=== PATIENT | female | born 1930 | race Caucasian/White ===

== ENCOUNTER 2017-08-12 22:04 | Inpatient (IN) | payer MEDICARE, OTHER ==
--- NOTE | 2017-08-12 22:31 | EDM.PDOC ---
ED HPI GENERAL MEDICAL PROBLEM - General Chief Complaint: Chest Pain Stated Complaint: CHEST PAIN/SOB Time Seen by Provider: 08/12/17 22:10 Source of Information: Reports: Patient, Family History Limitations: Reports: No Limitations - History of Present Illness INITIAL COMMENTS - FREE TEXT/NARRATIVE: 87-year-old female who is been sick for a week, intermittent fevers and now has chest pressure, pain with breathing and shortness of breath. Tonight she felt like she was "going to " so her primary physician told her to come in for further evaluation. She has been on ciprofloxacin for the last 5 days for a possible UTI. Onset: Gradual (Over the past 5-6 days) Location: Reports: Chest Severity: Moderate Treatments LIVESTOCK COUNTER: Reports: EKG, Other (see below) (Has been on antibiotics for the past 5 days) Mid Chest Pain Score (Numeric/FACES): 6 - Related Data Allergies Allergy/AdvReac Type Severity Reaction Status Date / Time Sulfa (Sulfonamide Allergy Rash Verified 08/12/17 22:19 Antibiotics) Home Meds: Home Meds Ascorbate Calcium [Vitamin C] 500 mg PO DAILY 01/08/15 [History] Calcium Carbonate/Vitamin D3 [Calcium 600 + D3 Softgel] 1 tab PO BID 01/08/15 [ History] Rizatriptan [Maxalt] 10 mg PO ASDIRECTED PRN 01/08/15 [History] Vitamin E 400 unit PO DAILY 01/08/15 [History] Warfarin [Coumadin] 7.5 mg PO .SATSUNTUESWEDFIR 01/08/15 [History] Evista 60 mg PO PCLUNCH 04/21/16 [History] Ciprofloxacin HCl [Cipro] 250 mg PO BID 08/12/17 [History] Hydrochlorothiazide 25 mg PO DAILY 08/12/17 [History] Levothyroxine [Synthroid] 88 mcg PO DAILY 08/12/17 [History] Mirabegron [Myrbetriq] 50 mg PO BEDTIME 08/12/17 [History] Past Medical History Other Gastrointestinal History: difficulty swallowing Other Genitourinary History: frequency - Past Surgical History Other Cardiovascular Surgeries/Procedures: cardioversion Other Neurological Surgeries/Procedures: possible compression fracture ED ROS GENERAL - Review of Systems Review Of Systems: See Below Constitutional: Reports: Fever, Chills, Malaise HEENT: Reports: No Symptoms Respiratory: Reports: Shortness of Breath, Cough. Denies: Sputum Cardiovascular: Reports: Chest Pain (Intermittent pressure worse with coughing) GI/Abdominal: Denies: Abdominal Pain : Reports: No Symptoms Skin: Reports: No Symptoms Neurological: Reports: Weakness Psychiatric: Reports: No Symptoms ED EXAM, GENERAL - Physical Exam Exam: See Below Exam Limited By: No Limitations General Appearance: Alert, No Apparent Distress Throat/Mouth: Normal Inspection Head: Atraumatic Respiratory/Chest: No Respiratory Distress, Rales (Rales in the bases especially on the left, decreased breath sounds) Cardiovascular: Irregularly Irregular GI/Abdominal: Soft, Non-Tender Extremities: No: Pedal Edema Neurological: Alert, Oriented Psychiatric: Normal Affect, Normal Mood Skin Exam: Warm, Dry Course - Vital Signs Last Recorded V/S: Last Vital Signs Temp 99.3 F 08/13/17 03:34 Pulse 84 08/13/17 03:34 Resp 20 08/13/17 03:34 BP 122/65 08/13/17 03:34 Pulse Ox 98 08/13/17 03:34 - Orders/Labs/Meds Orders: Active Orders 24 hr Category Date Time Status Chest 1V Frontal [CR] Stat Exams 08/12/17 22:27 Taken CULTURE BLOOD [BC] Urgent Lab 08/12/17 22:30 Ordered CULTURE BLOOD [BC] Urgent Lab 08/12/17 22:40 Ordered Sodium Chloride 0.9% [Normal Saline] 1,000 ml Med 08/12/17 23:15 Active IV ASDIRECTED Blood Culture x2 Reflex Set [OM.PC] Urgent Oth 08/12/17 22:27 Ordered EKG 12 Lead [EK] Routine Ther 08/12/17 22:27 Ordered Medication Orders Acetaminophen (Tylenol) 650 mg PO Q4H PRN PRN Reason: Fever Albuterol (Proventil Neb Soln) 2.5 mg NEB Q4H PRN PRN Reason: Shortness Of Breath/wheezing Calcium Carbonate (Caltrate 600+D 1500 Mg-400 Units) 1 tab PO BID [facility] Hydrochlorothiazide (Hydrochlorothiazide) 25 mg PO DAILY [facility] Sodium Chloride (Normal Saline) 1,000 mls @ 150 mls/hr IV ASDIRECTED YOKO Last Infusion: 08/13/17 00:25 Dose: 75 mls/hr Admin: 08/12/17 23:25 Dose: 150 mls/hr Ceftriaxone Sodium 1 gm/ (Sodium Chloride) 50 mls @ 100 mls/hr IV Q24H [facility] Last Admin: 08/13/17 00:48 Dose: 100 mls/hr Levofloxacin/Dextrose 500 mg/ (Premix) 100 mls @ 100 mls/hr IV Q48H [facility] Last Admin: 08/13/17 01:17 Dose: 100 mls/hr Mirabegron (Myrbetriq) 50 mg PO BEDTIME [facility] Raloxifene HCl (Evista) 60 mg PO PCLUNCH [facility] Rizatriptan Benzoate (Maxalt Tax Accounting Manager) 10 mg PO ASDIRECTED PRN PRN Reason: Headache/Pain Sodium Chloride (Saline Flush) 10 ml FLUSH ASDIRECTED PRN PRN Reason: Keep Vein Open Warfarin Sodium (Coumadin) 7.5 mg PO [email or web address] [facility] Last Admin: 08/13/17 00:49 Dose: Labs: Laboratory Tests 08/12/17 08/12/17 Range/Units 22:40 22:40 WBC 9.8 (4.5-11.0) K/uL RBC 3.91 (3.30-5.50) M/uL Hgb 11.5 L (12.0-15.0) g/dL Hct 34.9 L (36.0-48.0) % MCV 89 (80-98) fL MCH 29 (27-31) pg MCHC 33 (32-36) % Plt Count 150 (150-400) K/uL Neut % (Auto) 83 H (36-66) % Lymph % (Auto) 8 L (24-44) % [place] % (Auto) 8 H (2-6) % Eos % (Auto) 1 L (2-4) % Baso % (Auto) 0 (0-1) % Sodium 134 L (140-148) mmol/L Potassium 3.7 (3.6-5.2) mmol/L Chloride 100 (100-108) mmol/L Carbon Dioxide 28 (21-32) mmol/L Anion Gap 9.7 (5.0-14.0) mmol/L BUN 25 H (7-18) mg/dL Creatinine 0.9 (0.6-1.0) mg/dL Est Cr Clr Drug Dosing 37.13 mL/min Estimated GFR (MDRD) 59 L (>60) Glucose 114 H (74-106) mg/dL Calcium 8.3 L (8.5-10.1) mg/dL Total Bilirubin 0.7 (0.2-1.0) mg/dL AST 75 H (15-37) U/L ALT 56 (12-78) U/L Alkaline Phosphatase 149 H (46-116) U/L Troponin I < 0.017 (0.000-0.056) ng/mL Total Protein 7.4 (6.4-8.2) g/dL Albumin 2.7 L (3.4-5.0) g/dL Globulin 4.7 H (2.3-3.5) g/dL Albumin/Globulin Ratio 0.6 L (1.2-2.2) Meds: Medications Generic Name Dose Route Start Last Admin Trade Name Freq PRN Reason Stop Dose Admin Acetaminophen 650 mg 08/13/17 02:22 Tylenol PO Q4H PRN Fever Albuterol 2.5 mg 08/12/17 23:34 Proventil Neb Soln NEB Q4H PRN Shortness Of Breath/wheezing Calcium Carbonate 1 tab 08/13/17 09:00 Caltrate 600+D 1500 Mg-400 Units PO BID YOKO Hydrochlorothiazide 25 mg 08/13/17 09:00 Hydrochlorothiazide PO DAILY [facility] Sodium Chloride 1,000 mls @ 150 mls/hr 08/12/17 23:15 08/13/17 00:25 Normal Saline IV 75 mls/hr ASDIRECTED Y[facility]O Infusion Ceftriaxone Sodium 1 gm/ 50 mls @ 100 mls/hr 08/13/17 00:15 08/13/17 00:48 Sodium Chloride IV 100 mls/hr Q24H [facility] Administration Levofloxacin/Dextrose 500 mg/ 100 mls @ 100 mls/hr 08/13/17 00:15 08/13/17 01 :17 Premix IV 100 mls/hr Q48H [facility] Administration Mirabegron 50 mg 08/13/17 21:00 Myrbetriq PO BEDTIME YOKO Raloxifene HCl 60 mg 08/13/17 13:00 Evista PO PCLUNCH [facility] Rizatriptan Benzoate 10 mg 08/13/17 00:15 Maxalt Tax Accounting Manager PO ASDIRECTED PRN Headache/Pain Sodium Chloride 10 ml 08/12/17 23:34 Saline Flush FLUSH ASDIRECTED PRN Keep Vein Open Warfarin Sodium 7.5 mg 08/13/17 00:15 08/13/17 00:49 Coumadin PO Not Given [email or web address] [facility] Discontinued Medications Generic Name Dose Route Start Last Admin Trade Name Gaetano PRN Reason Stop Dose Admin Albuterol/Ipratropium 3 ml 08/12/17 23:11 08/12/17 23:19 Duoneb 3.0-0.5 Mg/3 Ml NEB 08/12/17 23:12 3 ml ONETIME ONE Administration - Re-Assessments/Exams Free Text/Narrative Re-Assessment/Exam: 08/12/17 22:30 EKG appeared to show well controlled atrial fibrillation, no ST changes. A portable chest x-ray will be obtained as well as blood cultures, CBC, CMP, and troponin. O2 will be continued. 08/12/17 23:13 White count was normal. Chest x-ray is concerning for right upper lobe infiltrate as well as perihilar fullness, also cardiomegaly which appears stable from previous x-ray. She does have some scattered wheezes so a DuoNeb was given, and Dr. Fuller was called to consider admission for pneumonia with possible underlying malignancies. Departure - Departure Time of Disposition: 00:55 Disposition: Admitted As Inpatient 65 Clinical Impression: Pneumonia - Discharge Information - My Orders Last 24 Hours: My Active Orders 08/12/17 22:27 Chest 1V Frontal [CR] Stat Blood Culture x2 Reflex Set [OM.PC] Urgent EKG 12 Lead [EK] Routine 08/12/17 22:30 CULTURE BLOOD [BC] Urgent 08/12/17 22:40 CULTURE BLOOD [BC] Urgent 08/12/17 23:15 Sodium Chloride 0.9% [Normal Saline] 1,000 ml IV ASDIRECTED - Assessment/Plan Last 24 Hours: My Active Orders 08/12/17 22:27 Chest 1V Frontal [CR] Stat Blood Culture x2 Reflex Set [OM.PC] Urgent EKG 12 Lead [EK] Routine 08/12/17 22:30 CULTURE BLOOD [BC] Urgent 08/12/17 22:40 CULTURE BLOOD [BC] Urgent 08/12/17 23:15 Sodium Chloride 0.9% [Normal Saline] 1,000 ml IV ASDIRECTED
[2017-08-12] MEDS ORDERED: Albuterol/Ipratropium 3.0-0.5 MG/3 ML Neb Soln NEB ONE (23:11)
[2017-08-12] MEDS ORDERED: Sodium Chloride 0.9% 1,000 ML IV SCH (23:15)
[2017-08-12] MEDS ORDERED: Albuterol 0.083% 2.5 MG/3 ML Neb Soln NEB PRN (23:34)
[2017-08-12] MEDS ORDERED: Sodium Chloride 0.9% 10 ML Syringe FLUSH PRN (23:34)
--- NOTE | 2017-08-12 23:53 | PCM.HP ---
H&P History of Present Illness - General Date of Service: 08/12/17 Admit Problem/Dx: Admission Diagnosis/Problem Admission Diagnosis/Problem Pneumonia Source of Information: Patient, EMS, Family History Limitations: Reports: No Limitations - History of Present Illness Initial Comments - Free Text/Narative: Mariel was in the office 2 days ago and thought to have a UTI as she was having increased frequency of urination. She was started of Cipro 250mg bid. She had a low grade fever then. She also had orthostatic BP. She was discharged home and continued to have a low grade fevers. This evening she had a temp. up to 103 and was advised to come to the ER. She is being admitted. She has a history of AF and on Warfarin. Mid Chest Pain Score (Numeric/FACES): 6 - Related Data Allergies/Adverse Reactions: Allergies Allergy/AdvReac Type Severity Reaction Status Date / Time Sulfa (Sulfonamide Allergy Rash Verified 08/12/17 22:19 Antibiotics) Home Medications: Home Meds Ascorbate Calcium [Vitamin C] 500 mg PO DAILY 01/08/15 [History] Calcium Carbonate/Vitamin D3 [Calcium 600 + D3 Softgel] 1 tab PO BID 01/08/15 [ History] Rizatriptan [Maxalt] 10 mg PO ASDIRECTED PRN 01/08/15 [History] Vitamin E 400 unit PO DAILY 01/08/15 [History] Warfarin [Coumadin] 7.5 mg PO .SATSUNTUESWEDFIR 01/08/15 [History] Evista 60 mg PO PCLUNCH 04/21/16 [History] Ciprofloxacin HCl [Cipro] 250 mg PO BID 08/12/17 [History] Hydrochlorothiazide 25 mg PO DAILY 08/12/17 [History] Levothyroxine [Synthroid] 88 mcg PO DAILY 08/12/17 [History] Mirabegron [Myrbetriq] 50 mg PO BEDTIME 08/12/17 [History] Past Medical History HEENT History: Reports: Impaired Vision, Macular Degeneration Cardiovascular History: Reports: Afib, Hypertension Respiratory History: Reports: COPD Gastrointestinal History: Reports: Other (See Below) Other Gastrointestinal History: difficulty swallowing Genitourinary History: Reports: Other (See Below) Other Genitourinary History: frequency 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: , Spontaneous Musculoskeletal History: Reports: Osteoporosis, Other (See Below) Other Musculoskeletal History: compression fracture Neurological History: Reports: CVA Endocrine/Metabolic History: Reports: Hypothyroidism, Osteoporosis, Vitamin D Deficiency Hematologic History: Reports: Anticoagulation Therapy - Infectious Disease History Infectious Disease History: Reports: Chicken Pox - Past Surgical History Other Cardiovascular Surgeries/Procedures: cardioversion Other Neurological Surgeries/Procedures: possible compression fracture Social & Family History - Tobacco Use Smoking Status *Q: Never Smoker Second Hand Smoke Exposure: No - Caffeine Use Caffeine Use: Reports: Coffee - Recreational Drug Use Recreational Drug Use: No H&P Review of Systems - Review of Systems: Review Of Systems: See Below General: Reports: Fever, Chills, Weakness, Fatigue HEENT: Reports: No Symptoms Pulmonary: Reports: Shortness of Breath, Cough Cardiovascular: Reports: Dyspnea on Exertion Gastrointestinal: Reports: No Symptoms Genitourinary: Reports: Frequency Musculoskeletal: Reports: No Symptoms Skin: Reports: No Symptoms Psychiatric: Reports: No Symptoms Exam - Exam Exam: See Below - Vital Signs Vital Signs: Last Vital Signs Temp 101.1 F H 08/12/17 23:04 Pulse 95 08/12/17 23:04 Resp 30 H 08/12/17 23:04 BP 149/83 H 08/12/17 23:04 Pulse Ox 96 08/12/17 23:04 Weight: 120 lb - Exam General: Alert, Oriented, 4 HEENT: PERRLA, Hearing Intact, Mucosa Moist & [place], Nares Patent, Normal Nasal Septum, Posterior Pharynx Clear, Conjunctiva Clear, EOMI, EACs Clear, TMs Clear Neck: Supple, Trachea Midline, 2 Lungs: Clear to Auscultation, Normal Respiratory Effort Cardiovascular: Irregular Rhythm GI/Abdominal Exam: Normal Bowel Sounds, Soft, Non-Tender, No Organomegaly, No Distention, No Abnormal Bruit, No Mass, Pelvis Stable Back Exam: Normal Inspection, Full Range of Motion, NT Extremities: Normal Inspection, Normal Range of Motion, Non-Tender, No Pedal Edema, Normal Capillary Refill Peripheral Pulses: 1+: Radial (L), Radial (R) Skin: Warm, Dry, Intact Neuro Extensive - Mental Status: Alert, Oriented x3, Normal Mood/Affect Neuro Extensive - Motor, Sensory, Reflexes: CN II-XII Intact DTR: 1+: Bicep (L), Bicep (R) Psychiatric: Alert, Normal Affect, Normal Mood - Patient Data Lab Results Last 24 hrs: Laboratory Results - last 24 hr 08/12/17 08/12/17 Range/Units 22:40 22:40 WBC 9.8 (4.5-11.0) K/uL RBC 3.91 (3.30-5.50) M/uL Hgb 11.5 L (12.0-15.0) g/dL Hct 34.9 L (36.0-48.0) % MCV 89 (80-98) fL MCH 29 (27-31) pg MCHC 33 (32-36) % Plt Count 150 (150-400) K/uL Neut % (Auto) 83 H (36-66) % Lymph % (Auto) 8 L (24-44) % [place] % (Auto) 8 H (2-6) % Eos % (Auto) 1 L (2-4) % Baso % (Auto) 0 (0-1) % Sodium 134 L (140-148) mmol/L Potassium 3.7 (3.6-5.2) mmol/L Chloride 100 (100-108) mmol/L Carbon Dioxide 28 (21-32) mmol/L Anion Gap 9.7 (5.0-14.0) mmol/L BUN 25 H (7-18) mg/dL Creatinine 0.9 (0.6-1.0) mg/dL Est Cr Clr Drug Dosing 37.13 mL/min Estimated GFR (MDRD) 59 L (>60) Glucose 114 H (74-106) mg/dL Calcium 8.3 L (8.5-10.1) mg/dL Total Bilirubin 0.7 (0.2-1.0) mg/dL AST 75 H (15-37) U/L ALT 56 (12-78) U/L Alkaline Phosphatase 149 H (46-116) U/L Troponin I < 0.017 (0.000-0.056) ng/mL Total Protein 7.4 (6.4-8.2) g/dL Albumin 2.7 L (3.4-5.0) g/dL Globulin 4.7 H (2.3-3.5) g/dL Albumin/Globulin Ratio 0.6 L (1.2-2.2) Result Diagrams: 08/13/17 05:00 08/13/17 05:00 Problem List Initiated/Reviewed/Updated: Yes Orders Last 24hrs: Active Orders 24 hr Category Date Time Status Patient Status [ADT] Routine ADT 08/12/17 23:34 Ordered Bedrest Bathroom Privileges [RC] ASDIRECTED Care 08/12/17 23:34 Ordered EKG Documentation Completion [RC] ASDIRECTED Care 08/12/17 22:27 Active Height and Weight [RC] DAILY Care 08/12/17 23:34 Ordered Intake and Output [RC] QSHIFT Care 08/12/17 23:38 Ordered Oxygen Therapy [RC] PRN Care 08/12/17 23:34 Ordered Peripheral IV Care [RC] . DIRECTED Care 08/12/17 23:41 Ordered RT Aerosol Therapy [RC] ASDIRECTED Care 08/12/17 23:11 Active RT Aerosol Therapy [RC] ASDIRECTED Care 08/12/17 23:43 Ordered Up With Assistance [RC] ASDIRECTED Care 08/12/17 23:34 Ordered Up to Chair [RC] QID Care 08/12/17 23:34 Ordered VTE/DVT Education [RC] Per Unit Routine Care 08/12/17 23:34 Ordered Vital Signs [RC] Q4H Care 08/12/17 23:34 Ordered Heart Healthy Diet [DIET] Diet 08/13/17 Breakfast Ordered Regular Diet [DIET] Diet 08/13/17 Breakfast Ordered Chest 1V Frontal [CR] Stat Exams 08/12/17 22:27 Taken BASIC METABOLIC PANEL,BMP [CHEM] AM Lab 08/13/17 05:11 Ordered CBC WITH AUTO DIFF [HEME] AM Lab 08/13/17 05:11 Ordered CULTURE BLOOD [BC] Urgent Lab 08/12/17 22:30 Ordered CULTURE BLOOD [BC] Urgent Lab 08/12/17 22:40 Ordered INR,PT,PROTHROMBIN TIME [COAG] DAILY Lab 08/12/17 23:45 Ordered Albuterol [Proventil Neb Soln] Med 08/12/17 23:34 Ordered 2.5 mg NEB Q4H PRN Calcium Carbonate/Vitamin D3 [Calcium 600 + Vit D 400 Med 08/13/17 09:00 Ordered Softgl] 1 tab PO BID Evista Med 08/13/17 13:00 Ordered 60 mg PO PCLUNCH Hydrochlorothiazide Med 08/13/17 09:00 Ordered 25 mg PO DAILY Mirabegron [Myrbetriq] Med 08/13/17 21:00 Ordered 50 mg PO BEDTIME Rizatriptan [Maxalt] Med 08/12/17 23:44 Ordered 10 mg PO ASDIRECTED PRN Sodium Chloride 0.9% [Normal Saline] 1,000 ml Med 08/12/17 23:15 Active IV ASDIRECTED Sodium Chloride 0.9% [Saline Flush] Med 08/12/17 23:34 Ordered 10 ml FLUSH ASDIRECTED PRN Warfarin [Coumadin] Med 08/12/17 23:45 Ordered 7.5 mg PO .SATSUNTUESWEDFIR Blood Culture x2 Reflex Set [OM.PC] Urgent Oth 08/12/17 22:27 Ordered Peripheral IV Insertion Adult [OM.PC] Routine Oth 08/12/17 23:34 Ordered Resuscitation Status Routine Resus Stat 08/12/17 23:34 Ordered EKG 12 Lead [EK] Routine Ther 08/12/17 22:27 Ordered Medication Orders Sodium Chloride (Normal Saline) 1,000 mls @ 150 mls/hr IV ASDIRECTED [facility] Assessment/Plan Comment:: Assessment/plan: #1. Pneumonia: Will admit to the hospital and begin antibiotics. Will continue with O2 as she is on it chronically. Follow \with a CT of the lung. #2. Atrial Fib: Continue with Warfarin. #3. S/P CVA condition stable. #4. Bladder dysfunction with increased frequency of urination: Continue with Myrbetriq #5. History of Migraine headaches. Will continue with Meds prn.
[2017-08-13] MEDS ORDERED: cefTRIAXone 1 GM in Sodium Chloride 0.9% 50 ML IV SCH (00:15)
[2017-08-13] MEDS ORDERED: Levofloxacin/Dextrose 5%-Water 500 MG in Premix Bag 1 BAG IV SCH (00:15)
[2017-08-13] MEDS ORDERED: Rizatriptan 10 MG Tab.DIS PO PRN (00:15)
[2017-08-13] MEDS: Warfarin 2.5 MG Tab PO SCH ×2 (00:49→13:07)
[2017-08-13] MEDS ORDERED: Acetaminophen 325 MG Tab PO PRN (02:22)
--- NOTE | 2017-08-13 08:31 | CR ---
CHEST: Portable CLINICAL HISTORY:SOB COMPARISON:2012 FINDINGS: Heart is enlarged. Pulmonary vascularity is cephalized. There are diffuse bilateral pulmon sofia infiltrates. These are superimposed over chronic lung field changes. There are no effusions. IMPRESSION: Diffuse bilateral pulmonary infiltrates. The this is most likely secondary to pulmonary edema from CHF. Diffuse pneumonia is not excluded. Clinical correlation necessary
[2017-08-13] MEDS: Calcium Carbonate/Vitamin D3 1500 MG-400 Units Tab PO SCH ×2 (08:36→21:18)
[2017-08-13] MEDS: Hydrochlorothiazide 25 MG Tab PO SCH (08:37)
[2017-08-13] MEDS ORDERED: Potassium Chloride 20 MEQ Tab.ER PO ONE (09:00)
[2017-08-13] MEDS: Levothyroxine 88 MCG Tab PO SCH (11:52)
[2017-08-13] MEDS: Raloxifene 60 MG Tab PO SCH (13:08)
[2017-08-13] MEDS: Sodium Chloride 0.9% 1,000 ML IV SCH (13:41)
--- NOTE | 2017-08-13 15:45 | PCM.PN ---
- General Info Date of Service: 08/13/17 Admission Dx/Problem (Free Text): Continues to have a low grade fever and is alert. Functional Status: Reports: Pain Controlled - Review of Systems General: Reports: Weakness Pulmonary: Reports: Shortness of Breath, Cough, Wheezing Cardiovascular: Reports: No Symptoms Gastrointestinal: Reports: No Symptoms Genitourinary: Reports: Frequency Musculoskeletal: Reports: No Symptoms Skin: Reports: No Symptoms Neurological: Reports: No Symptoms Psychiatric: Reports: No Symptoms - Patient Data Vitals - Most Recent: Last Vital Signs Temp 99.7 F 08/13/17 14:34 Pulse 88 08/13/17 14:34 Resp 18 08/13/17 14:34 BP 120/90 08/13/17 14:34 Pulse Ox 98 08/13/17 14:34 Weight - Most Recent: 120 lb I&O - Last 24 Hours: Intake & Output 08/13/17 08/13/17 08/13/17 06:59 14:59 22:59 Intake Total 376 Output Total 200 1000 Balance 176 -1000 Lab Results Last 24 Hours: Laboratory Results - last 24 hr 08/12/17 08/12/17 08/12/17 Range/Units 22:40 22:40 23:45 WBC 9.8 (4.5-11.0) K/uL RBC 3.91 (3.30-5.50) M/uL Hgb 11.5 L (12.0-15.0) g/dL Hct 34.9 L (36.0-48.0) % MCV 89 (80-98) fL MCH 29 (27-31) pg MCHC 33 (32-36) % Plt Count 150 (150-400) K/uL Neut % (Auto) 83 H (36-66) % Lymph % (Auto) 8 L (24-44) % [place] % (Auto) 8 H (2-6) % Eos % (Auto) 1 L (2-4) % Baso % (Auto) 0 (0-1) % PT 22.1 H (9.5-12.0) sec INR 2.01 H (0.80-1.20) Sodium 134 L (140-148) mmol/L Potassium 3.7 (3.6-5.2) mmol/L Chloride 100 (100-108) mmol/L Carbon Dioxide 28 (21-32) mmol/L Anion Gap 9.7 (5.0-14.0) mmol/L BUN 25 H (7-18) mg/dL Creatinine 0.9 (0.6-1.0) mg/dL Est Cr Clr Drug Dosing 37.13 mL/min Estimated GFR (MDRD) 59 L (>60) Glucose 114 H (74-106) mg/dL Calcium 8.3 L (8.5-10.1) mg/dL Total Bilirubin 0.7 (0.2-1.0) mg/dL AST 75 H (15-37) U/L ALT 56 (12-78) U/L Alkaline Phosphatase 149 H (46-116) U/L Troponin I < 0.017 (0.000-0.056) ng/mL Total Protein 7.4 (6.4-8.2) g/dL Albumin 2.7 L (3.4-5.0) g/dL Globulin 4.7 H (2.3-3.5) g/dL Albumin/Globulin Ratio 0.6 L (1.2-2.2) 08/13/17 08/13/17 08/13/17 Range/Units 05:00 05:00 05:00 WBC 8.4 (4.5-11.0) K/uL RBC 3.50 (3.30-5.50) M/uL Hgb 10.3 L (12.0-15.0) g/dL Hct 31.4 L (36.0-48.0) % MCV 90 (80-98) fL MCH 29 (27-31) pg MCHC 33 (32-36) % Plt Count 137 L (150-400) K/uL Neut % (Auto) 79 H (36-66) % Lymph % (Auto) 11 L (24-44) % [place] % (Auto) 10 H (2-6) % Eos % (Auto) 1 L (2-4) % Baso % (Auto) 0 (0-1) % PT 21.2 H (9.5-12.0) sec INR 1.93 H (0.80-1.20) Sodium 134 L (140-148) mmol/L Potassium 3.4 L (3.6-5.2) mmol/L Chloride 102 (100-108) mmol/L Carbon Dioxide 26 (21-32) mmol/L Anion Gap 9.4 (5.0-14.0) mmol/L BUN 19 H (7-18) mg/dL Creatinine 0.8 (0.6-1.0) mg/dL Est Cr Clr Drug Dosing 43.65 mL/min Estimated GFR (MDRD) > 60 (>60) Glucose 104 (74-106) mg/dL Calcium 7.7 L (8.5-10.1) mg/dL Total Bilirubin (0.2-1.0) mg/dL AST (15-37) U/L ALT (12-78) U/L Alkaline Phosphatase (46-116) U/L Troponin I (0.000-0.056) ng/mL Total Protein (6.4-8.2) g/dL Albumin (3.4-5.0) g/dL Globulin (2.3-3.5) g/dL Albumin/Globulin Ratio (1.2-2.2) Med Orders - Current: Current Medications Acetaminophen (Tylenol) 650 mg PO Q4H PRN PRN Reason: Fever Albuterol (Proventil Neb Soln) 2.5 mg NEB Q4H PRN PRN Reason: Shortness Of Breath/wheezing Calcium Carbonate (Caltrate 600+D 1500 Mg-400 Units) 1 tab PO BID [facility] Last Admin: 08/13/17 08:36 Dose: 1 tab Hydrochlorothiazide (Hydrochlorothiazide) 25 mg PO DAILY [facility] Last Admin: 08/13/17 08:37 Dose: 25 mg Levofloxacin/Dextrose 500 mg/ (Premix) 100 mls @ 100 mls/hr IV Q48H [facility] Last Admin: 08/13/17 01:17 Dose: 100 mls/hr Ceftriaxone Sodium 1 gm/ (Sodium Chloride) 50 mls @ 100 mls/hr IV Q24H [facility] Sodium Chloride (Normal Saline) 1,000 mls @ 75 mls/hr IV ASDIRECTED [facility] Last Admin: 08/13/17 13:41 Dose: 75 mls/hr Levothyroxine Sodium (Synthroid) 88 mcg PO ACBREAKFAST [facility] Last Admin: 08/13/17 11:52 Dose: 88 mcg Mirabegron (Myrbetriq) 50 mg PO BEDTIME [facility] Raloxifene HCl (Evista) 60 mg PO PCLUNCH [facility] Last Admin: 08/13/17 13:08 Dose: 60 mg Rizatriptan Benzoate (Maxalt Camp Nurse) 10 mg PO ASDIRECTED PRN PRN Reason: Headache/Pain Sodium Chloride (Saline Flush) 10 ml FLUSH ASDIRECTED PRN PRN Reason: Keep Vein Open Warfarin Sodium (Coumadin) 7.5 mg PO [id number]@1300 [facility] Last Admin: 08/13/17 13:07 Dose: 7.5 mg Discontinued Medications Albuterol/Ipratropium (Duoneb 3.0-0.5 Mg/3 Ml) 3 ml NEB ONETIME ONE Stop: 08/12/17 23:12 Last Admin: 08/12/17 23:19 Dose: 3 ml Sodium Chloride (Normal Saline) 1,000 mls @ 150 mls/hr IV ASDIRECTED [facility] Last Infusion: 08/13/17 00:25 Dose: 75 mls/hr Ceftriaxone Sodium 1 gm/ (Sodium Chloride) 50 mls @ 100 mls/hr IV Q24H [facility] Last Admin: 08/13/17 00:48 Dose: 100 mls/hr Potassium Chloride (Klor-Con M20) 20 meq PO ONETIME ONE Stop: 08/13/17 09:01 Last Admin: 08/13/17 13:06 Dose: 20 meq - Exam General: Alert, Oriented HEENT: Pupils Equal, Pupils Reactive, EOMI, Mucous Membr. Moist/[place] Neck: Supple Lungs: Decreased Breath Sounds, Wheezing GI/Abdominal Exam: Normal Bowel Sounds, Soft, Non-Tender, No Organomegaly, No Distention, No Abnormal Bruit, No Mass, Pelvis Stable Back Exam: Normal Inspection, Full Range of Motion Extremities: Normal Inspection Peripheral Pulses: 1+: Radial (L), Radial (R) Skin: Warm, Dry, Intact - Problem List Review Problem List Initiated/Reviewed/Updated: Yes - My Orders Last 24 Hours: My Active Orders 08/12/17 23:34 Patient Status [ADT] Routine Bedrest Bathroom Privileges [RC] ASDIRECTED Height and Weight [RC] DAILY Oxygen Therapy [RC] PRN Up With Assistance [RC] ASDIRECTED Up to Chair [RC] QID VTE/DVT Education [RC] Per Unit Routine Vital Signs [RC] Q4H Albuterol [Proventil Neb Soln] 2.5 mg NEB Q4H PRN Sodium Chloride 0.9% [Saline Flush] 10 ml FLUSH ASDIRECTED PRN Peripheral IV Insertion Adult [OM.PC] Routine Resuscitation Status Routine 08/12/17 23:38 Intake and Output [RC] QSHIFT 08/12/17 23:41 Peripheral IV Care [RC] Q12H 08/12/17 23:43 RT Aerosol Therapy [RC] ASDIRECTED 08/13/17 00:15 Levofloxacin/Dextrose 5%-Water [Levaquin in D5W 500 MG/100 ML] 500 mg Premix Bag 1 bag IV Q48H Rizatriptan [Maxalt SECURITY GUARD DISPATCHER] 10 mg PO ASDIRECTED PRN Warfarin [Coumadin] 7.5 mg PO SuTuWeFrSa@1300 08/13/17 02:22 Acetaminophen [Tylenol] 650 mg PO Q4H PRN 08/13/17 08:00 Communication Order [RC] DAILY 08/13/17 08:45 Sodium Chloride 0.9% [Normal Saline] 1,000 ml IV ASDIRECTED 08/13/17 09:00 Calcium Carbonate/Vitamin D3 [Caltrate 600+D 1500 MG-400 Units] 1 tab PO BID Hydrochlorothiazide 25 mg PO DAILY 08/13/17 11:30 Levothyroxine [Synthroid] 88 mcg PO ACBREAKFAST 08/13/17 13:00 Raloxifene [Evista] 60 mg PO PCLUNCH 08/13/17 13:35 PT Evaluation and Treatment [CONS] Routine 08/13/17 13:38 Dietary Supplements [RC] BIDAC 08/13/17 21:00 Mirabegron [Myrbetriq] 50 mg PO BEDTIME 08/13/17 23:00 cefTRIAXone [Rocephin] 1 gm Sodium Chloride 0.9% [Normal Saline] 50 ml IV Q24H 08/13/17 Breakfast Heart Healthy Diet [DIET] Regular Diet [DIET] 08/14/17 05:11 INR,PT,PROTHROMBIN TIME [COAG] DAILY 08/15/17 05:11 INR,PT,PROTHROMBIN TIME [COAG] DAILY 08/16/17 05:11 INR,PT,PROTHROMBIN TIME [COAG] DAILY 08/17/17 05:11 INR,PT,PROTHROMBIN TIME [COAG] DAILY - Plan Plan:: Assessment/plan: #1. Pneumonia: Will continue with the antibiotics. Will continue with O2 as she is on it chronically. Follow \with a CT of the lung. #2. Atrial Fib: Continue with Warfarin. INR 2.2 today #3. S/P CVA condition stable. #4. Bladder dysfunction with increased frequency of urination: Continue with Myrbetriq #5. History of Migraine headaches. Will continue with Meds prn. Fluid balance is stable. K is low have started supplementation.
[2017-08-13] MEDS: Mirabegron 25 MG Tab Extended Release PO SCH (21:18)
[2017-08-13] MEDS: cefTRIAXone 1 GM in Sodium Chloride 0.9% 50 ML IV SCH (22:39)
[2017-08-14] MEDS: Sodium Chloride 0.9% 1,000 ML IV SCH ×2 (03:15→19:20)
[2017-08-14] MEDS: Levothyroxine 88 MCG Tab PO SCH (07:21)
[2017-08-14] MEDS: Hydrochlorothiazide 25 MG Tab PO SCH (08:17)
[2017-08-14] MEDS: Calcium Carbonate/Vitamin D3 1500 MG-400 Units Tab PO SCH ×2 (08:17→21:11)
--- NOTE | 2017-08-14 08:51 | PCM.PN ---
- General Info Date of Service: 08/14/17 Functional Status: Reports: Pain Controlled - Review of Systems General: Reports: Fever, Weakness HEENT: Reports: No Symptoms Pulmonary: Reports: Shortness of Breath, Cough, Wheezing Cardiovascular: Reports: Dyspnea on Exertion Gastrointestinal: Reports: No Symptoms Genitourinary: Reports: Frequency Skin: Reports: No Symptoms Neurological: Reports: No Symptoms - Patient Data Vitals - Most Recent: Last Vital Signs Temp 99.1 F 08/14/17 07:20 Pulse 86 08/14/17 07:20 Resp 18 08/14/17 07:20 BP 134/74 08/14/17 07:20 Pulse Ox 93 L 08/14/17 07:20 Weight - Most Recent: 125 lb 9.6 oz I&O - Last 24 Hours: Intake & Output 08/13/17 08/14/17 08/14/17 22:59 06:59 14:59 Intake Total 1232 731 Output Total 750 700 100 Balance 482 31 -100 Lab Results Last 24 Hours: Laboratory Results - last 24 hr 08/14/17 Range/Units 05:51 PT 25.3 H (9.5-12.0) sec INR 2.28 H (0.80-1.20) Frank Results Last 24 Hours: Microbiology 08/12/17 22:40 Aerobic Blood Culture - Preliminary Blood - Venous - Lab Draw NO GROWTH AFTER 1 DAY Anaerobic Blood Culture - Preliminary NO GROWTH AFTER 1 DAY 08/12/17 22:30 Aerobic Blood Culture - Preliminary Blood - Venous NO GROWTH AFTER 1 DAY Anaerobic Blood Culture - Preliminary NO GROWTH AFTER 1 DAY Med Orders - Current: Current Medications Acetaminophen (Tylenol) 650 mg PO Q4H PRN PRN Reason: Fever Albuterol (Proventil Neb Soln) 2.5 mg NEB Q4H PRN PRN Reason: Shortness Of Breath/wheezing Calcium Carbonate (Caltrate 600+D 1500 Mg-400 Units) 1 tab PO BID [facility] Last Admin: 08/14/17 08:17 Dose: 1 tab Hydrochlorothiazide (Hydrochlorothiazide) 25 mg PO DAILY [facility] Last Admin: 08/14/17 08:17 Dose: 25 mg Ceftriaxone Sodium 1 gm/ (Sodium Chloride) 50 mls @ 100 mls/hr IV Q24H [facility] Last Admin: 08/13/17 22:39 Dose: 100 mls/hr Sodium Chloride (Normal Saline) 1,000 mls @ 75 mls/hr IV ASDIRECTED [facility] Last Admin: 08/14/17 03:15 Dose: 75 mls/hr Levofloxacin/Dextrose 750 mg/ (Premix) 150 mls @ 100 mls/hr IV Q48H [facility] Levothyroxine Sodium (Synthroid) 88 mcg PO ACBREAKFAST [facility] Last Admin: 08/14/17 07:21 Dose: 88 mcg Mirabegron (Myrbetriq) 50 mg PO BEDTIME [facility] Last Admin: 08/13/17 21:18 Dose: 50 mg Raloxifene HCl (Evista) 60 mg PO PCLUNCH [facility] Last Admin: 08/13/17 13:08 Dose: 60 mg Rizatriptan Benzoate (Maxalt Blister Rust Eradicator) 10 mg PO ASDIRECTED PRN PRN Reason: Headache/Pain Sodium Chloride (Saline Flush) 10 ml FLUSH ASDIRECTED PRN PRN Reason: Keep Vein Open Warfarin Sodium (Coumadin) 7.5 mg PO SuTuWeFrSa@1300 [facility] Last Admin: 08/13/17 13:07 Dose: 7.5 mg Discontinued Medications Albuterol/Ipratropium (Duoneb 3.0-0.5 Mg/3 Ml) 3 ml NEB ONETIME ONE Stop: 08/12/17 23:12 Last Admin: 08/12/17 23:19 Dose: 3 ml Sodium Chloride (Normal Saline) 1,000 mls @ 150 mls/hr IV ASDIRECTED [facility] Last Infusion: 08/13/17 00:25 Dose: 75 mls/hr Ceftriaxone Sodium 1 gm/ (Sodium Chloride) 50 mls @ 100 mls/hr IV Q24H [facility] Last Admin: 08/13/17 00:48 Dose: 100 mls/hr Levofloxacin/Dextrose 500 mg/ (Premix) 100 mls @ 100 mls/hr IV Q48H [facility] Last Admin: 08/13/17 01:17 Dose: 100 mls/hr Potassium Chloride (Klor-Con M20) 20 meq PO ONETIME ONE Stop: 08/13/17 09:01 Last Admin: 08/13/17 13:06 Dose: 20 meq - Exam General: Alert, Oriented HEENT: Pupils Equal, Pupils Reactive, EOMI, Mucous Membr. Moist/[place] Neck: Supple Lungs: Decreased Breath Sounds, Wheezing Cardiovascular: Irregular Rhythm (Female) Exam: Normal External Exam, Normal Speculum Exam, Normal Bimanual Exam Back Exam: Normal Inspection, Full Range of Motion Peripheral Pulses: 1+: Radial (L), Radial (R) Skin: Warm, Dry, Intact Psy/Mental Status: Alert, Normal Affect, Normal Mood - Problem List Review Problem List Initiated/Reviewed/Updated: Yes - My Orders Last 24 Hours: My Active Orders 08/13/17 08:00 Communication Order [RC] DAILY 08/13/17 08:45 Sodium Chloride 0.9% [Normal Saline] 1,000 ml IV ASDIRECTED 08/13/17 09:00 Calcium Carbonate/Vitamin D3 [Caltrate 600+D 1500 MG-400 Units] 1 tab PO BID Hydrochlorothiazide 25 mg PO DAILY 08/13/17 11:30 Levothyroxine [Synthroid] 88 mcg PO ACBREAKFAST 08/13/17 13:00 Raloxifene [Evista] 60 mg PO PCLUNCH 08/13/17 13:35 PT Evaluation and Treatment [CONS] Routine 08/13/17 13:38 Dietary Supplements [RC] BIDAC 08/13/17 21:00 Mirabegron [Myrbetriq] 50 mg PO BEDTIME 08/13/17 23:00 cefTRIAXone [Rocephin] 1 gm Sodium Chloride 0.9% [Normal Saline] 50 ml IV Q24H 08/13/17 Breakfast Heart Healthy Diet [DIET] Regular Diet [DIET] 08/14/17 13:00 Levofloxacin/Dextrose 5%-Water [Levaquin in D5W 750 MG/150 ML] 750 mg Premix Bag 1 bag IV Q48H 08/15/17 05:11 INR,PT,PROTHROMBIN TIME [COAG] DAILY 08/16/17 05:11 INR,PT,PROTHROMBIN TIME [COAG] DAILY 08/17/17 05:11 INR,PT,PROTHROMBIN TIME [COAG] DAILY - Plan Plan:: Assessment/plan: #1. Pneumonia: Will continue with the antibiotics. Will continue with O2 as she is on it chronically. Follow with a CT of the lung Wednesday. #2. Atrial Fib: Continue with Warfarin. INR 2.28 today #3. S/P CVA condition stable. #4. Bladder dysfunction with increased frequency of urination: Continue with Myrbetriq #5. History of Migraine headaches. Will continue with Meds prn. #6. Insomnia: Will give a trial of Melatonin Fluid balance is stable. K is low have started supplementation.
[2017-08-14] MEDS: Warfarin 2.5 MG Tab PO SCH (13:22)
[2017-08-14] MEDS: Raloxifene 60 MG Tab PO SCH (13:22)
[2017-08-14] MEDS: Levofloxacin/Dextrose 5%-Water 750 MG in Premix Bag 1 BAG IV SCH (14:39)
[2017-08-14] MEDS ORDERED: Melatonin 3 MG Tab PO SCH (21:00)
[2017-08-14] MEDS: Mirabegron 25 MG Tab Extended Release PO SCH (21:12)
[2017-08-14] MEDS: cefTRIAXone 1 GM in Sodium Chloride 0.9% 50 ML IV SCH (23:56)
[2017-08-15] MEDS: Levothyroxine 88 MCG Tab PO SCH (07:05)
--- NOTE | 2017-08-15 07:59 | PCM.PN ---
- General Info Date of Service: 08/15/17 Functional Status: Reports: Pain Controlled - Review of Systems General: Reports: Fever, Weakness HEENT: Reports: No Symptoms Pulmonary: Reports: Shortness of Breath, Cough, Wheezing Cardiovascular: Reports: Dyspnea on Exertion Gastrointestinal: Reports: No Symptoms Genitourinary: Reports: Frequency Musculoskeletal: Reports: No Symptoms Skin: Reports: No Symptoms Neurological: Reports: Weakness Psychiatric: Reports: No Symptoms - Patient Data Vitals - Most Recent: Last Vital Signs Temp 99.6 F 08/15/17 06:58 Pulse 85 08/15/17 06:58 Resp 16 08/15/17 06:58 BP 121/74 08/15/17 06:58 Pulse Ox 95 08/15/17 06:58 Weight - Most Recent: 125 lb 9.6 oz I&O - Last 24 Hours: Intake & Output 08/14/17 08/15/17 08/15/17 22:59 06:59 14:59 Intake Total 936 800 Output Total 1450 500 Balance -514 300 Lab Results Last 24 Hours: Laboratory Results - last 24 hr 08/15/17 Range/Units 05:36 PT 32.3 H (9.5-12.0) sec INR 2.89 H (0.80-1.20) Frank Results Last 24 Hours: Microbiology 08/12/17 22:40 Aerobic Blood Culture - Preliminary Blood - Venous - Lab Draw NO GROWTH AFTER 2 DAYS Anaerobic Blood Culture - Preliminary NO GROWTH AFTER 2 DAYS 08/12/17 22:30 Aerobic Blood Culture - Preliminary Blood - Venous NO GROWTH AFTER 2 DAYS Anaerobic Blood Culture - Preliminary NO GROWTH AFTER 2 DAYS Med Orders - Current: Current Medications Acetaminophen (Tylenol) 650 mg PO Q4H PRN PRN Reason: Fever Albuterol (Proventil Neb Soln) 2.5 mg NEB Q4H PRN PRN Reason: Shortness Of Breath/wheezing Calcium Carbonate (Caltrate 600+D 1500 Mg-400 Units) 1 tab PO BID [facility] Last Admin: 08/14/17 21:11 Dose: 1 tab Hydrochlorothiazide (Hydrochlorothiazide) 25 mg PO DAILY [facility] Last Admin: 08/14/17 08:17 Dose: 25 mg Ceftriaxone Sodium 1 gm/ (Sodium Chloride) 50 mls @ 100 mls/hr IV Q24H [facility] Last Admin: 08/14/17 23:56 Dose: 100 mls/hr Sodium Chloride (Normal Saline) 1,000 mls @ 75 mls/hr IV ASDIRECTED [facility] Last Admin: 08/14/17 19:20 Dose: 75 mls/hr Levofloxacin/Dextrose 750 mg/ (Premix) 150 mls @ 100 mls/hr IV Q48H [facility] Last Admin: 08/14/17 14:39 Dose: 100 mls/hr Levothyroxine Sodium (Synthroid) 88 mcg PO ACBREAKFAST [facility] Last Admin: 08/15/17 07:05 Dose: 88 mcg Mirabegron (Myrbetriq) 50 mg PO BEDTIME [facility] Last Admin: 08/14/17 21:12 Dose: 50 mg Raloxifene HCl (Evista) 60 mg PO PCLUNCH [facility] Last Admin: 08/14/17 13:22 Dose: 60 mg Rizatriptan Benzoate (Maxalt Laboratory Administrative Director) 10 mg PO ASDIRECTED PRN PRN Reason: Headache/Pain Sodium Chloride (Saline Flush) 10 ml FLUSH ASDIRECTED PRN PRN Reason: Keep Vein Open Trazodone HCl (Trazodone) 50 mg PO ONETIME ONE Stop: 08/15/17 20:01 Warfarin Sodium (Coumadin) 7.5 mg PO SuTuWeFrSa@1300 [facility] Last Admin: 08/14/17 13:22 Dose: 7.5 mg Discontinued Medications Albuterol/Ipratropium (Duoneb 3.0-0.5 Mg/3 Ml) 3 ml NEB ONETIME ONE Stop: 08/12/17 23:12 Last Admin: 08/12/17 23:19 Dose: 3 ml Sodium Chloride (Normal Saline) 1,000 mls @ 150 mls/hr IV ASDIRECTED [facility] Last Infusion: 08/13/17 00:25 Dose: 75 mls/hr Ceftriaxone Sodium 1 gm/ (Sodium Chloride) 50 mls @ 100 mls/hr IV Q24H [facility] Last Admin: 08/13/17 00:48 Dose: 100 mls/hr Levofloxacin/Dextrose 500 mg/ (Premix) 100 mls @ 100 mls/hr IV Q48H [facility] Last Admin: 08/13/17 01:17 Dose: 100 mls/hr Melatonin (Melatonin) 3 mg PO BEDTIME [facility] Last Admin: 08/14/17 21:12 Dose: 3 mg Potassium Chloride (Klor-Con M20) 20 meq PO ONETIME ONE Stop: 08/13/17 09:01 Last Admin: 08/13/17 13:06 Dose: 20 meq - Exam General: Alert, Oriented HEENT: Pupils Equal, Pupils Reactive, EOMI, Mucous Membr. Moist/[place] Neck: Supple Lungs: Decreased Breath Sounds, Wheezing Cardiovascular: Regular Rate, Regular Rhythm GI/Abdominal Exam: Normal Bowel Sounds, Soft, Non-Tender, No Organomegaly, No Distention, No Abnormal Bruit, No Mass, Pelvis Stable Back Exam: Normal Inspection, Full Range of Motion Extremities: Normal Inspection, Normal Range of Motion, Non-Tender, No Pedal Edema, Normal Capillary Refill Peripheral Pulses: 1+: Radial (L), Radial (R) Skin: Warm, Dry, Intact Wound/Incisions: Healing Well Psy/Mental Status: Alert, Normal Affect, Normal Mood - Problem List Review Problem List Initiated/Reviewed/Updated: Yes - My Orders Last 24 Hours: My Active Orders 08/14/17 13:00 Levofloxacin/Dextrose 5%-Water [Levaquin in D5W 750 MG/150 ML] 750 mg Premix Bag 1 bag IV Q48H 08/15/17 07:34 Chest w Cont [CT] Routine 08/15/17 20:00 traZODone 50 mg PO ONETIME ONE 08/16/17 05:11 CBC WITH AUTO DIFF [HEME] Routine COMPREHENSIVE METABOLIC PN,CMP [CHEM] Routine INR,PT,PROTHROMBIN TIME [COAG] DAILY 08/17/17 05:11 INR,PT,PROTHROMBIN TIME [COAG] DAILY - Plan Plan:: Assessment/plan: #1. Pneumonia: Will continue with the antibiotics. Will continue with O2 as she is on it chronically. Follow with a CT of the lung tomorrow. #2. Atrial Fib: Continue with Warfarin. INR 2.89 today will decrease coumadin #3. S/P CVA condition stable. #4. Bladder dysfunction with increased frequency of urination: Continue with Myrbetriq #5. History of Migraine headaches. Will continue with Meds prn. #6. Insomnia: Will give a trial of Trazadone tonight Fluid balance is stable. K is low have started supplementation.
[2017-08-15] MEDS: Calcium Carbonate/Vitamin D3 1500 MG-400 Units Tab PO SCH ×2 (08:03→21:07)
[2017-08-15] MEDS: Hydrochlorothiazide 25 MG Tab PO SCH (08:03)
[2017-08-15] MEDS ORDERED: Iopamidol 612 MG/ML 100 ML Bottle IV PRN (08:39)
[2017-08-15] MEDS: Sodium Chloride 0.9% 1,000 ML IV SCH (08:49)
[2017-08-15] MEDS: Raloxifene 60 MG Tab PO SCH (12:36)
[2017-08-15] MEDS ORDERED: traZODone 50 MG Tab PO ONE (20:00)
[2017-08-15] MEDS: Mirabegron 25 MG Tab Extended Release PO SCH (21:08)
[2017-08-15] MEDS: cefTRIAXone 1 GM in Sodium Chloride 0.9% 50 ML IV SCH (23:52)
[2017-08-16] MEDS: Levothyroxine 88 MCG Tab PO SCH (07:59)
[2017-08-16] MEDS: Hydrochlorothiazide 25 MG Tab PO SCH (08:00)
[2017-08-16] MEDS: Calcium Carbonate/Vitamin D3 1500 MG-400 Units Tab PO SCH ×2 (08:02→21:06)
--- NOTE | 2017-08-16 10:29 | CT ---
Chest w Cont CLINICAL HISTORY: Lung infiltrates TECHNIQUE: Axial scans were obtained from the thoracic inlet to the lung bases following IV infusion of iodinated contrast. Auto dosage reduction and iterative reconstruction techniques employed. COMPARISON: Current chest x-ray. FINDINGS: Lung window images show diffuse bilateral pulmonary infiltrate or edema most notable in the right upper lobe. There is patchy airspace disease the throughout the the right lower lobe and left lung. There is a moderate right pleural effusion and a small left effusion no solid masses are identi fied. The heart is moderately enlarged, particularly the left atrium. There are some prominent lymph nodes in the paratracheal and pericarinal region. There is soft tissue fullness in both daniel which ma y be due to some lymphadenopathy. Scans into the upper abdomen show a few scattered granulomata in th e spleen. IMPRESSION: Moderate cardiomegaly with left atrial enlargement Diffuse airspace disease bilaterally. This is most notable in the right upper lobe. Some of this may represent the persistent the pulmonary edema from CHF. Superimposed pneumonic infiltrate particularl y in the right upper lobe is not excluded. Enlarged lymph nodes in the mediastinum and both daniel. Repeat CT following course of treatment is a c onsideration
[2017-08-16] MEDS ORDERED: Warfarin 2.5 MG Tab PO SCH (13:00)
[2017-08-16] MEDS: Raloxifene 60 MG Tab PO SCH (13:15)
[2017-08-16] MEDS: Potassium Chloride 20 MEQ Tab.ER PO SCH (13:16)
[2017-08-16] MEDS: Levofloxacin/Dextrose 5%-Water 750 MG in Premix Bag 1 BAG IV SCH (13:16)
--- NOTE | 2017-08-16 18:42 | PCM.PN ---
- General Info Date of Service: 08/16/17 Subjective Update: She slept good last night and wants another pill as last night. She is aware she still runs a fever. Functional Status: Reports: Pain Controlled - Review of Systems General: Reports: Fever, Chills HEENT: Reports: No Symptoms Pulmonary: Reports: Shortness of Breath, Cough Cardiovascular: Reports: No Symptoms Gastrointestinal: Reports: No Symptoms Genitourinary: Reports: Frequency - Patient Data Vitals - Most Recent: Last Vital Signs Temp 100.0 F 08/16/17 16:14 Pulse 84 08/16/17 15:00 Resp 18 08/16/17 15:00 BP 111/55 L 08/16/17 15:00 Pulse Ox 95 08/16/17 15:00 Weight - Most Recent: 124 lb 3.2 oz I&O - Last 24 Hours: Intake & Output 08/16/17 08/16/17 08/16/17 06:59 14:59 22:59 Intake Total 50 440 Output Total 700 250 225 Balance -650 190 -225 Lab Results Last 24 Hours: Laboratory Results - last 24 hr 08/16/17 08/16/17 08/16/17 Range/Units 05:30 05:30 05:30 WBC 7.2 (4.5-11.0) K/uL RBC 3.61 (3.30-5.50) M/uL Hgb 10.5 L (12.0-15.0) g/dL Hct 32.5 L (36.0-48.0) % MCV 90 (80-98) fL MCH 29 (27-31) pg MCHC 32 (32-36) % Plt Count 230 (150-400) K/uL Neut % (Auto) 76 H (36-66) % Lymph % (Auto) 9 L (24-44) % Cherry % (Auto) 11 H (2-6) % Eos % (Auto) 3 (2-4) % Baso % (Auto) 1 (0-1) % PT 25.0 H (9.5-12.0) sec INR 2.26 H (0.80-1.20) Sodium 137 L (140-148) mmol/L Potassium 3.3 L (3.6-5.2) mmol/L Chloride 101 (100-108) mmol/L Carbon Dioxide 31 (21-32) mmol/L Anion Gap 8.3 (5.0-14.0) mmol/L BUN 12 (7-18) mg/dL Creatinine 0.8 (0.6-1.0) mg/dL Est Cr Clr Drug Dosing 43.23 mL/min Estimated GFR (MDRD) > 60 (>60) Glucose 96 (74-106) mg/dL Calcium 8.4 L (8.5-10.1) mg/dL Total Bilirubin 0.6 (0.2-1.0) mg/dL AST 33 (15-37) U/L ALT 28 (12-78) U/L Alkaline Phosphatase 126 H (46-116) U/L Total Protein 6.7 (6.4-8.2) g/dL Albumin 2.0 L (3.4-5.0) g/dL Globulin 4.7 H (2.3-3.5) g/dL Albumin/Globulin Ratio 0.4 L (1.2-2.2) Frank Results Last 24 Hours: Microbiology 08/12/17 22:40 Aerobic Blood Culture - Preliminary Blood - Venous - Lab Draw NO GROWTH AFTER 3 DAYS Anaerobic Blood Culture - Preliminary NO GROWTH AFTER 3 DAYS 08/12/17 22:30 Aerobic Blood Culture - Preliminary Blood - Venous NO GROWTH AFTER 3 DAYS Anaerobic Blood Culture - Preliminary NO GROWTH AFTER 3 DAYS Med Orders - Current: Current Medications Acetaminophen (Tylenol) 650 mg PO Q4H PRN PRN Reason: Fever Last Admin: 08/16/17 15:44 Dose: 650 mg Albuterol (Proventil Neb Soln) 2.5 mg NEB Q4H PRN PRN Reason: Shortness Of Breath/wheezing Calcium Carbonate (Caltrate 600+D 1500 Mg-400 Units) [address] [facility] Last Admin: 08/16/17 08:02 Dose: 1 tab Hydrochlorothiazide (Hydrochlorothiazide) [address] [facility] Last Admin: 08/16/17 08:00 Dose: 25 mg Ceftriaxone Sodium 1 gm/ (Sodium Chloride) 50 mls @ 100 mls/hr IV Q24H [facility] Last Admin: 08/15/17 23:52 Dose: 100 mls/hr Levofloxacin/Dextrose 750 mg/ (Premix) 150 mls @ 100 mls/hr IV Q48H [facility] Last Admin: 08/16/17 13:16 Dose: 100 mls/hr Levothyroxine Sodium (Synthroid) [address] [facility] Last Admin: 08/16/17 07:59 Dose: 88 mcg Mirabegron (Myrbetriq) [address] [facility] Last Admin: 08/15/17 21:08 Dose: 50 mg Potassium Chloride (Klor-Con M20) [address] [facility] Last Admin: 08/16/17 13:16 Dose: 20 meq Raloxifene HCl (Evista) [address] [facility] Last Admin: 08/16/17 13:15 Dose: 60 mg Rizatriptan Benzoate (Maxalt Air Conditioning Service Technician) 10 mg PO ASDIRECTED PRN PRN Reason: Headache/Pain Sodium Chloride (Saline Flush) 10 ml FLUSH ASDIRECTED PRN PRN Reason: Keep Vein Open Warfarin Sodium (Coumadin) 7.5 mg PO MoTh@1300 [facility] Last Admin: 08/16/17 13:16 Dose: 7.5 mg Warfarin Sodium 1 mg/ Warfarin (Sodium 7.5 mg) 8.5 mg PO SuTuWeFrSa@1300 [facility] Discontinued Medications Albuterol/Ipratropium (Duoneb 3.0-0.5 Mg/3 Ml) 3 ml NEB ONETIME ONE Stop: 08/12/17 23:12 Last Admin: 08/12/17 23:19 Dose: 3 ml Sodium Chloride (Normal Saline) 1,000 mls @ 150 mls/hr IV ASDIRECTED [facility] Last Infusion: 08/13/17 00:25 Dose: 75 mls/hr Ceftriaxone Sodium 1 gm/ (Sodium Chloride) 50 mls @ 100 mls/hr IV Q24H [facility] Last Admin: 08/13/17 00:48 Dose: 100 mls/hr Levofloxacin/Dextrose 500 mg/ (Premix) 100 mls @ 100 mls/hr IV Q48H [facility] Last Admin: 08/13/17 01:17 Dose: 100 mls/hr Sodium Chloride (Normal Saline) 1,000 mls @ 75 mls/hr IV ASDIRECTED [facility] Last Admin: 08/15/17 08:49 Dose: 75 mls/hr Sodium Chloride (Normal Saline) 70 mls @ 3 mls/sec IV ASDIRECTED [facility] Stop: 08/15/17 23:00 Last Admin: 08/15/17 10:03 Dose: 3 mls/sec Iopamidol (Isovue-300 (61%)) 100 ml IV . DIRECTED PRN PRN Reason: RADIOLOGY EXAM Stop: 08/16/17 08:40 Last Admin: 08/15/17 10:03 Dose: 100 ml Melatonin (Melatonin) [address] [facility] Last Admin: 08/14/17 21:12 Dose: 3 mg Potassium Chloride (Klor-Con M20) 20 meq PO ONETIME ONE Stop: 08/13/17 09:01 Last Admin: 08/13/17 13:06 Dose: 20 meq Trazodone HCl (Trazodone) 50 mg PO ONETIME ONE Stop: 08/15/17 20:01 Last Admin: 08/15/17 21:08 Dose: 50 mg Warfarin Sodium (Coumadin) 7.5 mg PO SuTuWeFrSa@1300 [facility] Last Admin: 08/14/17 13:22 Dose: 7.5 mg - Exam General: Alert, Oriented HEENT: Pupils Equal, Pupils Reactive, EOMI, Mucous Membr. Moist/[place] Lungs: Decreased Breath Sounds, Other (lung sounds are improving.) Cardiovascular: Regular Rate, Regular Rhythm Peripheral Pulses: 1+: Radial (L), Radial (R) Skin: Warm, Dry, Intact - Problem List Review Problem List Initiated/Reviewed/Updated: Yes - My Orders Last 24 Hours: My Active Orders 08/16/17 11:45 Potassium Chloride [Klor-Con M20] 20 meq PO DAILY 08/16/17 13:00 Warfarin [Coumadin] 7.5 mg PO MoTh@1300 08/17/17 05:11 INR,PT,PROTHROMBIN TIME [COAG] DAILY 08/17/17 13:00 Warfarin [Coumadin] 8.5 mg PO SuTuWeFrSa@1300 - Plan Plan:: Assessment/plan: #1. Pneumonia: Will continue with the antibiotics. Will continue with O2 as she is on it chronically. CT did not show a tumor but an infiltrate. #2. Atrial Fib: Continue with Warfarin. INR 2.89 today will decrease coumadin #3. S/P CVA condition stable. #4. Bladder dysfunction with increased frequency of urination: Continue with Myrbetriq #5. History of Migraine headaches. Will continue with Meds prn. #6. Insomnia: Will give a continue with Trazodone Fluid balance is stable. K is low have started supplementation.
[2017-08-16] MEDS ORDERED: traZODone 50 MG Tab PO SCH (21:00)
[2017-08-16] MEDS: Mirabegron 25 MG Tab Extended Release PO SCH (21:07)
[2017-08-16] MEDS: cefTRIAXone 1 GM in Sodium Chloride 0.9% 50 ML IV SCH (22:02)
[2017-08-17] MEDS: Levothyroxine 88 MCG Tab PO SCH (07:43)
[2017-08-17] MEDS: Calcium Carbonate/Vitamin D3 1500 MG-400 Units Tab PO SCH (08:18)
[2017-08-17] MEDS: Potassium Chloride 20 MEQ Tab.ER PO SCH (08:18)
[2017-08-17] MEDS: Hydrochlorothiazide 25 MG Tab PO SCH (08:19)
[2017-08-17] MEDS ORDERED: WARFARIN PO SCH ×2 (13:00)
--- NOTE | 2017-08-17 14:07 | PCM.PN ---
- General Info Date of Service: 08/17/17 Admission Dx/Problem (Free Text): Mariel states that she's feeling better she feels like she can go home. She is coughing less but still hears noises in her lungs. She has more strength today than what she had yesterday. - Review of Systems General: Reports: Weakness HEENT: Reports: No Symptoms Pulmonary: Reports: Shortness of Breath, Cough Cardiovascular: Reports: No Symptoms Gastrointestinal: Reports: No Symptoms Genitourinary: Reports: No Symptoms Musculoskeletal: Reports: No Symptoms Skin: Reports: No Symptoms Neurological: Reports: No Symptoms Psychiatric: Reports: No Symptoms - Patient Data Vitals - Most Recent: Last Vital Signs Temp 98.6 F 08/17/17 07:26 Pulse 90 08/17/17 07:26 Resp 20 08/17/17 07:26 BP 102/55 L 08/17/17 07:26 Pulse Ox 90 L 08/17/17 07:26 Weight - Most Recent: 123 lb 9.6 oz I&O - Last 24 Hours: Intake & Output 08/16/17 08/17/17 08/17/17 22:59 06:59 14:59 Intake Total 440 240 Output Total 750 900 300 Balance -310 -900 -60 Lab Results Last 24 Hours: Laboratory Results - last 24 hr 08/17/17 Range/Units 05:11 PT 27.1 H (9.5-12.0) sec INR 2.44 H (0.80-1.20) Frank Results Last 24 Hours: Microbiology 08/12/17 22:40 Aerobic Blood Culture - Preliminary Blood - Venous - Lab Draw NO GROWTH AFTER 4 DAYS Anaerobic Blood Culture - Preliminary NO GROWTH AFTER 4 DAYS 08/12/17 22:30 Aerobic Blood Culture - Preliminary Blood - Venous NO GROWTH AFTER 4 DAYS Anaerobic Blood Culture - Preliminary NO GROWTH AFTER 4 DAYS Med Orders - Current: Current Medications Discontinued Medications Acetaminophen (Tylenol) 650 mg PO Q4H PRN PRN Reason: Fever Last Admin: 08/16/17 15:44 Dose: 650 mg Albuterol (Proventil Neb Soln) 2.5 mg NEB Q4H PRN PRN Reason: Shortness Of Breath/wheezing Albuterol/Ipratropium (Duoneb 3.0-0.5 Mg/3 Ml) 3 ml NEB ONETIME ONE Stop: 08/12/17 23:12 Last Admin: 08/12/17 23:19 Dose: 3 ml Calcium Carbonate (Caltrate 600+D 1500 Mg-400 Units) 1 tab PO BID [facility] Last Admin: 08/17/17 08:18 Dose: 1 tab Hydrochlorothiazide (Hydrochlorothiazide) 25 mg PO DAILY [facility] Last Admin: 08/17/17 08:19 Dose: Not Given Sodium Chloride (Normal Saline) 1,000 mls @ 150 mls/hr IV ASDIRECTED [facility] Last Infusion: 08/13/17 00:25 Dose: 75 mls/hr Ceftriaxone Sodium 1 gm/ (Sodium Chloride) 50 mls @ 100 mls/hr IV Q24H [facility] Last Admin: 08/13/17 00:48 Dose: 100 mls/hr Levofloxacin/Dextrose 500 mg/ (Premix) 100 mls @ 100 mls/hr IV Q48H [facility] Last Admin: 08/13/17 01:17 Dose: 100 mls/hr Ceftriaxone Sodium 1 gm/ (Sodium Chloride) 50 mls @ 100 mls/hr IV Q24H [facility] Last Admin: 08/16/17 22:02 Dose: 100 mls/hr Sodium Chloride (Normal Saline) 1,000 mls @ 75 mls/hr IV ASDIRECTED [facility] Last Admin: 08/15/17 08:49 Dose: 75 mls/hr Levofloxacin/Dextrose 750 mg/ (Premix) 150 mls @ 100 mls/hr IV Q48H [facility] Last Admin: 08/16/17 13:16 Dose: 100 mls/hr Sodium Chloride (Normal Saline) 70 mls @ 3 mls/sec IV ASDIRECTED [facility] Stop: 08/15/17 23:00 Last Admin: 08/15/17 10:03 Dose: 3 mls/sec Iopamidol (Isovue-300 (61%)) 100 ml IV . DIRECTED PRN PRN Reason: RADIOLOGY EXAM Stop: 08/16/17 08:40 Last Admin: 08/15/17 10:03 Dose: 100 ml Levothyroxine Sodium (Synthroid) 88 mcg PO ACBREAKFAST [facility] Last Admin: 08/17/17 07:43 Dose: 88 mcg Melatonin (Melatonin) 3 mg PO BEDTIME [facility] Last Admin: 08/14/17 21:12 Dose: 3 mg Mirabegron (Myrbetriq) 50 mg PO BEDTIME [facility] Last Admin: 08/16/17 21:07 Dose: 50 mg Potassium Chloride (Klor-Con M20) 20 meq PO ONETIME ONE Stop: 08/13/17 09:01 Last Admin: 08/13/17 13:06 Dose: 20 meq Potassium Chloride (Klor-Con M20) 20 meq PO DAILY [facility] Last Admin: 08/17/17 08:18 Dose: 20 meq Raloxifene HCl (Evista) 60 mg PO PCLUNCH [facility] Last Admin: 08/16/17 13:15 Dose: 60 mg Rizatriptan Benzoate (Maxalt Rolled Glass Crosscutter) 10 mg PO ASDIRECTED PRN PRN Reason: Headache/Pain Sodium Chloride (Saline Flush) 10 ml FLUSH ASDIRECTED PRN PRN Reason: Keep Vein Open Trazodone HCl (Trazodone) 50 mg PO ONETIME ONE Stop: 08/15/17 20:01 Last Admin: 08/15/17 21:08 Dose: 50 mg Trazodone HCl (Trazodone) 50 mg PO BEDTIME [facility] Last Admin: 08/16/17 21:06 Dose: 50 mg Warfarin Sodium (Coumadin) 7.5 mg PO SuTuWeFrSa@1300 [facility] Last Admin: 08/14/17 13:22 Dose: 7.5 mg Warfarin Sodium (Coumadin) 7.5 mg PO MoTh@1300 [facility] Last Admin: 08/16/17 13:16 Dose: 7.5 mg Warfarin Sodium 1 mg/ Warfarin (Sodium 7.5 mg) 8.5 mg PO SuTuWeFrSa@1300 [facility] - Exam General: Alert, Oriented Neck: Supple Lungs: Decreased Breath Sounds, Crackles Cardiovascular: Regular Rate (past), Regular Rhythm GI/Abdominal Exam: Normal Bowel Sounds, Soft, Non-Tender, No Organomegaly, No Distention, No Abnormal Bruit, No Mass, Pelvis Stable Back Exam: Normal Inspection, Full Range of Motion Extremities: Normal Inspection, Normal Range of Motion, Non-Tender, No Pedal Edema, Normal Capillary Refill Peripheral Pulses: 1+: Radial (L), Radial (R) Skin: Warm, Dry, Intact Psy/Mental Status: Alert, Normal Affect, Normal Mood - Problem List Review Problem List Initiated/Reviewed/Updated: Yes - My Orders Last 24 Hours: My Active Orders 08/17/17 08:37 Ready for Discharge [RC] PER UNIT ROUTINE - Plan Plan:: Assessment/plan: #1. Pneumonia: Will continue with the antibiotics. Will continue with O2 as she is on it chronically. CT did not show a tumor but an infiltrate. I will repeat the chest CT in 2 weeks. #2. Atrial Fib: Continue with Warfarin. INR 2.44 today recheck her INR next week. #3. S/P CVA condition stable. #4. Bladder dysfunction with increased frequency of urination: Continue with Myrbetriq #5. History of Migraine headaches. Will continue with Meds prn. #6. Insomnia: Will give a continue with Trazodone Fluid balance is stable. K is low have started supplementation.
--- NOTE | 2017-08-17 14:08 | PCM.DCSUM1 ---
Discharge Summary - Hospital Course Brief History: Mariel was in the office 2 days before admission and thought to have a UTI as she was having increased frequency of urination. She was started of Cipro 250mg bid. She had a low grade fever then. She also had orthostatic BP. She was discharged home and continued to have a low grade fevers. The evening of admission she had a temp. up to 103 and was advised to come to the ER. She is being admitted. She has a history of AF and on Warfarin. Diagnosis: Stroke: No - Discharge Data Discharge Date: 08/17/17 Discharge Disposition: Home, Self-Care 01 Condition: Stable - Patient Summary/Data Consults: Consultations 08/13/17 13:35 PT Evaluation and Treatment [CONS] Routine Please Evaluate and Treat. PT Reason for Consult: Strengthening Pending Discharge: Yes Special Instructions: sabas alston This query below is only for informational purposes and is not editable. Admission Diagnosis/Problem: Pneumonia Hospital Course: She had minimal production throughout her hospital stay of fluid from her lungs and was not cultured. She did have blood cultures which were negative. She was started on Rocephin and ceftriaxone and gradually became afebrile. She did have low potassium and this was corrected she also had insomnia and this responded well to trazodone says she slept well. She had no response from taking melatonin. The CT of the lung was done which showed an infiltrate with small lymph nodes with no evidence of the tumor. The chest x-ray did show significant infiltrate in the hilar lesions mostly on the left - Patient Instructions Diet: Heart Healthy Diet Activity: As Tolerated - Discharge Plan Home Medications: Home Meds Ascorbate Calcium [Vitamin C] 500 mg PO DAILY 01/08/15 [History] Calcium Carbonate/Vitamin D3 [Calcium 600 + Vit D 400 Softgl] 1 tab PO BID 01/08 [History] Rizatriptan [Maxalt] 10 mg PO ASDIRECTED PRN 01/08/15 [History] Vitamin E 400 unit PO DAILY 01/08/15 [History] Warfarin [Coumadin] 7.5 mg PO .[id number] 01/08/15 [History] Evista 60 mg PO PCLUNCH 04/21/16 [History] Ciprofloxacin HCl [Cipro] 250 mg PO BID 08/12/17 [History] Levothyroxine [Synthroid] 88 mcg PO DAILY 08/12/17 [History] Mirabegron [Myrbetriq] 50 mg PO BEDTIME 08/12/17 [History] Albuterol [Proventil Neb Soln] 2.5 mg NEB Q4H PRN neb 08/17/17 [Rx] Hydrochlorothiazide 12.5 mg PO DAILY #0 08/17/17 [Rx] Levothyroxine [Synthroid] 88 mcg PO ACBREAKFAST tablet 08/17/17 [Rx] Potassium Chloride [Klor-Con M20] 20 meq PO DAILY tab.er 08/17/17 [Rx] Warfarin [Coumadin] 7.5 mg PO MoTh@1300 tablet 08/17/17 [Rx] Warfarin [Coumadin] 8.5 mg PO SuTuWeFrSa@1300 tablet 08/17/17 [Rx] Patient Handouts: Vitamin K Foods and Warfarin, Chronic Obstructive Pulmonary Disease, Community-Acquired Pneumonia, Adult, [id number] Referrals: Johann Fuller Sr, MD [Primary Care Provider] - 08/24/17 11:00 am - Discharge Summary/Plan Comment DC Time >30 min.: Yes Discharge Summary/Plan Comment: Assessment/plan: #1. Pneumonia: Will continue with the antibiotics. Will continue with O2 as she is on it chronically. CT did not show a tumor but an infiltrate. I will repeat the chest CT in 2 weeks. #2. Atrial Fib: Continue with Warfarin. INR 2.44 today recheck her INR next week. #3. S/P CVA condition stable. #4. Bladder dysfunction with increased frequency of urination: Continue with Myrbetriq #5. History of Migraine headaches. Will continue with Meds prn. #6. Insomnia: Will give a continue with Trazodone Fluid balance is stable. K is low have started supplementation. - Review of Systems General: Reports: Weakness HEENT: Reports: No Symptoms Pulmonary: Reports: Shortness of Breath, Cough, Wheezing Cardiovascular: Reports: No Symptoms Gastrointestinal: Reports: No Symptoms Genitourinary: Reports: No Symptoms Musculoskeletal: Reports: No Symptoms Skin: Reports: No Symptoms Neurological: Reports: No Symptoms Psychiatric: Reports: No Symptoms - Patient Data Vitals - Most Recent: Last Vital Signs Temp 98.6 F 08/17/17 07:26 Pulse 90 08/17/17 07:26 Resp 20 08/17/17 07:26 BP 102/55 L 08/17/17 07:26 Pulse Ox 90 L 08/17/17 07:26 Weight - Most Recent: 123 lb 9.6 oz I&O - Last 24 hours: Intake & Output 08/16/17 08/17/17 08/17/17 22:59 06:59 14:59 Intake Total 440 240 Output Total 750 900 300 Balance -310 -900 -60 Lab Results - Last 24 hrs: Laboratory Results - last 24 hr 08/17/17 Range/Units 05:11 PT 27.1 H (9.5-12.0) sec INR 2.44 H (0.80-1.20) [place] Results - Last 24 hrs: Microbiology 08/12/17 22:40 Aerobic Blood Culture - Preliminary Blood - Venous - Lab Draw NO GROWTH AFTER 4 DAYS Anaerobic Blood Culture - Preliminary NO GROWTH AFTER 4 DAYS 08/12/17 22:30 Aerobic Blood Culture - Preliminary Blood - Venous NO GROWTH AFTER 4 DAYS Anaerobic Blood Culture - Preliminary NO GROWTH AFTER 4 DAYS Med Orders - Current: Current Medications Discontinued Medications Acetaminophen (Tylenol) 650 mg PO Q4H PRN PRN Reason: Fever Last Admin: 08/16/17 15:44 Dose: 650 mg Albuterol (Proventil Neb Soln) 2.5 mg NEB Q4H PRN PRN Reason: Shortness Of Breath/wheezing Albuterol/Ipratropium (Duoneb 3.0-0.5 Mg/3 Ml) 3 ml NEB ONETIME ONE Stop: 08/12/17 23:12 Last Admin: 08/12/17 23:19 Dose: 3 ml Calcium Carbonate (Caltrate 600+D 1500 Mg-400 Units) 1 tab PO BID [facility] Last Admin: 08/17/17 08:18 Dose: 1 tab Hydrochlorothiazide (Hydrochlorothiazide) 25 mg PO DAILY [facility] Last Admin: 08/17/17 08:19 Dose: Not Given Sodium Chloride (Normal Saline) 1,000 mls @ 150 mls/hr IV ASDIRECTED [facility] Last Infusion: 08/13/17 00:25 Dose: 75 mls/hr Ceftriaxone Sodium 1 gm/ (Sodium Chloride) 50 mls @ 100 mls/hr IV Q24H [facility] Last Admin: 08/13/17 00:48 Dose: 100 mls/hr Levofloxacin/Dextrose 500 mg/ (Premix) 100 mls @ 100 mls/hr IV Q48H [facility] Last Admin: 08/13/17 01:17 Dose: 100 mls/hr Ceftriaxone Sodium 1 gm/ (Sodium Chloride) 50 mls @ 100 mls/hr IV Q24H [facility] Last Admin: 08/16/17 22:02 Dose: 100 mls/hr Sodium Chloride (Normal Saline) 1,000 mls @ 75 mls/hr IV ASDIRECTED [facility] Last Admin: 08/15/17 08:49 Dose: 75 mls/hr Levofloxacin/Dextrose 750 mg/ (Premix) 150 mls @ 100 mls/hr IV Q48H [facility] Last Admin: 08/16/17 13:16 Dose: 100 mls/hr Sodium Chloride (Normal Saline) 70 mls @ 3 mls/sec IV ASDIRECTED [facility] Stop: 08/15/17 23:00 Last Admin: 08/15/17 10:03 Dose: 3 mls/sec Iopamidol (Isovue-300 (61%)) 100 ml IV . DIRECTED PRN PRN Reason: RADIOLOGY EXAM Stop: 08/16/17 08:40 Last Admin: 08/15/17 10:03 Dose: 100 ml Levothyroxine Sodium (Synthroid) 88 mcg PO ACBREAKFAST [facility] Last Admin: 08/17/17 07:43 Dose: 88 mcg Melatonin (Melatonin) 3 mg PO BEDTIME [facility] Last Admin: 08/14/17 21:12 Dose: 3 mg Mirabegron (Myrbetriq) 50 mg PO BEDTIME [facility] Last Admin: 08/16/17 21:07 Dose: 50 mg Potassium Chloride (Klor-Con M20) 20 meq PO ONETIME ONE Stop: 08/13/17 09:01 Last Admin: 08/13/17 13:06 Dose: 20 meq Potassium Chloride (Klor-Con M20) 20 meq PO DAILY [facility] Last Admin: 08/17/17 08:18 Dose: 20 meq Raloxifene HCl (Evista) 60 mg PO PCLUNCH [facility] Last Admin: 08/16/17 13:15 Dose: 60 mg Rizatriptan Benzoate (Maxalt Refinery Operator) 10 mg PO ASDIRECTED PRN PRN Reason: Headache/Pain Sodium Chloride (Saline Flush) 10 ml FLUSH ASDIRECTED PRN PRN Reason: Keep Vein Open Trazodone HCl (Trazodone) 50 mg PO ONETIME ONE Stop: 08/15/17 20:01 Last Admin: 08/15/17 21:08 Dose: 50 mg Trazodone HCl (Trazodone) 50 mg PO BEDTIME [facility] Last Admin: 08/16/17 21:06 Dose: 50 mg Warfarin Sodium (Coumadin) 7.5 mg PO SuTuWeFrSa@1300 [facility] Last Admin: 08/14/17 13:22 Dose: 7.5 mg Warfarin Sodium (Coumadin) 7.5 mg PO MoTh@1300 [facility] Last Admin: 08/16/17 13:16 Dose: 7.5 mg Warfarin Sodium 1 mg/ Warfarin (Sodium 7.5 mg) 8.5 mg PO SuTuWeFrSa@1300 [facility] - Exam General: Reports: Alert, Oriented HEENT: Reports: Pupils Equal Neck: Reports: Supple Lungs: Reports: Decreased Breath Sounds, Crackles Cardiovascular: Reports: Regular Rate, Regular Rhythm (hello) Extremities: Normal Inspection, Normal Range of Motion, Non-Tender, No Pedal Edema, Normal Capillary Refill Skin: Reports: Warm, Dry, Intact Neurological: Reports: No New Focal Deficit Psy/Mental Status: Reports: Alert (Ary Phillips THIS is a he can get the stools are okay sole of his original red blood or what okay now Y week he will [facility] in a was going to what with the last), Normal Affect, Normal Mood ( Forgotten first and so is willing is going to go no okay we can probably well E if these are continue can talk to him right right when were here okay sure WANT TO COMMAND WILL SIT DOWN AND WE'LL TALK AND AND WILL CALL IN L CLINIC HE CAN TALK TO HIM WE DIDN'T SET UP I WILL THIS IS SECONDARY DONE1)
== END 2017-08-17 12:05 | disposition home or self-care (01) | DRG 195 ==
LOC: JP.ED 22:04 → JP.MS 23:34
PROVIDERS: ADMIT Internal Medicine; ATTEND Internal Medicine
DX: J18.9 Pneumonia, unspecified organism (principal); I10 Essential (primary) hypertension; I48.91 Unspecified atrial fibrillation; Z79.01 Long term (current) use of anticoagulants; E03.9 Hypothyroidism, unspecified; R06.02 Shortness of breath; R07.9 Chest pain, unspecified; R35.0 Frequency of micturition; Z86.73 Personal history of transient ischemic attack (TIA), and cerebral infarction without residual deficits; M81.0 Age-related osteoporosis without current pathological fracture; G43.909 Migraine, unspecified, not intractable, without status migrainosus; G47.00 Insomnia, unspecified; E55.9 Vitamin D deficiency, unspecified; H54.7 Unspecified visual loss; H35.30 Unspecified macular degeneration; E87.6 Hypokalemia; Z88.2 Allergy status to sulfonamides
CPT/HCPCS: 36415; 71045 ×2; 80053; 84484; 85025; 87040 ×2; 93005; 94640; 99285 ×2; J7030; J7620; 71260; 71260-26; 80048; 85610; 97110-GP; 97161-GP; 97530-GP; A9270-GY; J0696; J1956; J7050; Q9967